=== PATIENT | female | born 1970 | race Caucasian/White ===

== ENCOUNTER 2018-10-10 07:30 | Emergency (ER) | payer OTHER ==
[2018-10-10] MEDS: KETOROLAC 30 MG INJ IM (09:16)
== END 2018-10-10 09:36 | disposition home or self-care (01) ==
LOC: FTE 07:30
DX: S63.502A Unspecified sprain of left wrist, initial encounter (principal); M79.81 Nontraumatic hematoma of soft tissue; W18.39XA Other fall on same level, initial encounter; Y92.9 Unspecified place or not applicable
CPT/HCPCS: 29125; 73110-LT; 73130-LT; 81025; 96372; 99284-25